=== PATIENT | male | born 1960 | race Caucasian/White ===

== ENCOUNTER 2018-11-14 13:28 | Emergency (ER) | payer OTHER ==
[2018-11-14 15:39] LABS: BASOPHIL % 0.6 % (0-2); PLATELET COUNT 271 x10^3mcL (130-400); RED CELL DISTRIBUTION WIDTH 13.6 % (11.5-14.5)
[2018-11-14 15:43] LABS: CALCIUM 8.8 mg/dL (8.5-10.1); CARBON DIOXIDE 28.4 mmol/L (21-32); CREATININE SERUM 1.5 mg/dL (0.7-1.3); POTASSIUM SERUM 4.6 mmol/L (3.5-5.1)
[2018-11-14 15:48] LABS: ALBUMIN 3.8 g/dL (3.4-5.0); BILIRUBIN TOTAL 0.6 mg/dL (0.20-1.00); TOTAL PROTEIN, SERUM 7.4 g/dL (6.4-8.2)
[2018-11-14 19:18] VITALS: BP 139/72
== END 2018-11-14 19:18 | disposition home or self-care (01) ==
LOC: ED 13:28
PROVIDERS: Emergency Medicine
DX: K80.20 Calculus of gallbladder without cholecystitis without obstruction (principal); K57.90 Diverticulosis of intestine, part unspecified, without perforation or abscess without bleeding; I10 Essential (primary) hypertension; Z85.6 Personal history of leukemia
CPT/HCPCS: 36415; Q0092

== ENCOUNTER 2020-03-05 17:27 | Inpatient (IN) | payer OTHER ==
[~2020-03-05] VITALS: Ht 182.9 cm; Wt 108.1 kg
[~2020-03-05 17:27] MED LIST: FENOFIBRATE MI130 MG; HYDRALAZINE HCL25 MG PO; LASIX40 MG PO; LEVAQUIN750 MG PO; LEVO-T150 MCG; LOPRESSOR50 M1 PO; SPRYCEL100 MG PO
--- NOTE | 2020-03-05 17:35 | NUR ---
Pt bib adult son from home for sob/coughs since 02-23-20.was here 02-23-20,pna.awaits er md/pa-c evaluations/assessments.markel cervantes.monitors on.
--- NOTE | 2020-03-05 17:40 | NUR ---
kayla ronquillo at [facility] for evaluations/assessments.markel cervantes.monitors on.awaits reevaluations.
--- NOTE | 2020-03-05 17:50 | NUR ---
pt spouse showed up up at triage wait area and gave me permission to put her/branden contact number of [phone] in the chart.pt made aware.and spouse/weife took pt's wallet.
--- NOTE | 2020-03-05 18:05 | NUR ---
iov access started aseptically with blood drawn/sent to lab,flushed with ns.pt tolerated procedures with no incidents.awaits test results,reevaluations.markel cervantes.monitors on.
[2020-03-05 18:25] LABS: BASOPHIL % 0.2 % (0-2); RED CELL DISTRIBUTION WIDTH 14.5 % (11.5-14.5)
[2020-03-05 18:29] LABS: PLATELET COUNT 502 x10^3mcL (130-400)
--- NOTE | 2020-03-05 18:36 | NUR ---
RESTING ER # 15 HOB @ 60 DEGREES SR UP,AAO,NAD.IV MEDS INFUSING WELL VIA IV PUMP.PT TOLERATED PROCEDURES WITH NO INCIDENTS.AWAITS TEST RESULTS,REEVALUATIONS.
[2020-03-05 18:37] LABS: CALCIUM 8.3 mg/dL (8.5-10.1); CARBON DIOXIDE 23.1 mmol/L (21-32); CREATININE SERUM 1.4 mg/dL (0.7-1.3); POTASSIUM SERUM 4.5 mmol/L (3.5-5.1)
[2020-03-05 18:54] LABS: BILIRUBIN TOTAL 0.2 mg/dL (0.20-1.00)
[2020-03-05 18:55] LABS: ALBUMIN 3.2 g/dL (3.4-5.0)
--- NOTE | 2020-03-05 19:00 | NUR ---
COVID-19 SWAB DONE ON PT.SPECIMEN SENT TO LAB.PT TOLERATED PROCEDURES WITH NO INCIDENTS.AWAITS REEVALUATIONS.TOMMIE TRINIDAD.
--- NOTE | 2020-03-05 19:11 | NUR ---
PT ENDORSED to/accepted by julito anderson.
[2020-03-05] MEDS ORDERED: LIPOFEN150 MG PO (19:12)
[2020-03-05] MEDS ORDERED: FLOMAX0.4 MG PO (19:13)
--- NOTE | 2020-03-05 19:36 | NUR ---
REPORT GIVEN TO RONNA KANG TO ASSUME CARE PT.
[2020-03-05 19:54] LABS: UA SPECIFIC GRAVITY >=1.030 (1.005-1.035); microscopic required? YES; urine erythrocyte NEGATIVE (NEGATIVE)
--- NOTE | 2020-03-05 20:00 | NUR ---
RECEIVED PT FROM BULMARO KANG. PT IS AAOX4 AND DENIES VILLAVICENCIO/DIZZINESS AT THIS TIME. PT IS MED-SURG AND DENIES CP/PRESSURE. PT IV PATENT AND INTACT. RESUMED ZITHROMAX IV THAT PT WAS BROUGHT TO UNIT WITH FROM ED. REORIENTED PT TO CALL LIGHT AND SURROUNDINGS. ALL NEEDS MET AT THIS TIME. CALL LIGHT WITHIN REACH. BED IN LOWEST POSITION. SIDE RAILS X2 UP. DROPLET AND CONTACT PRECAUTIONS MAINTAINED. WILL CONTINUE TO MONITOR.
--- NOTE | 2020-03-05 20:00 | NUR ---
RECEIVED PATIENT FROM ER VIA [facility]ER[facility], PATIENT WALKING FROM [place] TO BED. DENIES PAIN OR SOB AT THIS TIME. MED-SURG PATIENT. IV TO LAC INTACT AND INFUSING ZITHROMAX, PATENT. ORIENTED TO CALL LIGHT, NEEDS MET. CARE ENDORSE TO RONNA KANG. INFORM PATIENT OF DROPLET ISOLATION AND ISOLATION BOX AND SIGN POST OUTSIDE THE DOOR.
[2020-03-05 20:08] LABS: C REACTIVE PROTEIN 0.6 mg/dL (<=0.9)
[2020-03-05 20:13] VITALS: BP 159/78
--- NOTE | 2020-03-05 22:15 | NUR ---
ZITHROMAX IV COMPLETED AT THIS TIME AND PT TOLERATED WELL. PER JAN, ADMINISTERED VANCO IVPB. PT WENT TO USE RESTROOM AT THIS TIME AND CAME BACK OUT D/T SOB. EXPIRATORY WHEEZES AND USE OF ACCESSORY MUSCLES NOTED. PUT PT ON 3LPM O2 VIA NC AND SAO2 IS 98%. EDUCATED PT TO TAKE SLOW, DEEP BREATHS. PT BREATHING SLOWED DOWN AND PER PT, HE WAS FEELING BETTER NOW ON THE OXYGEN. WILL MAKE DR. OSWALD AWARE. ALL NEEDS MET AT THIS TIME. WILL CONTINUE TO MONITOR.
--- NOTE | 2020-03-06 00:50 | NUR ---
MARICRUZO IVPB COMPLETED. PT TOLERATED WELL. PER MAR, ADMINISTERED ZOSYN IVPB. NO ACUTE DISTRESS NOTED. PER PT, BREATHING IS BETTER AT THIS TIME. PROVIDED PT WITH SNACKS AND WATER. ALL NEEDS MET AT THIS TIME. CALL LIGHT WITHIN REACH. BED IN LOWEST POSITION. SIDE RAILS X2 UP. WILL CONTINUE TO MONITOR.
[2020-03-06 02:39] VITALS: Ht 182.9 cm; Wt 108.1 kg
--- NOTE | 2020-03-06 05:18 | NUR ---
PT RESTED COMFORTABLY WITH EYES CLOSED IN INTERVALS THROUGHOUT THE NIGHT, BUT EASILY AROUSABLE. PT HAD 1X EPISODE OF SOB, BUT RESOLVED WITH PLACING PT BACK ON 3LPM 02 VIA NC AND CONTINUOUS PULSE OX WITH SA02 OF 98-100%. PT STATED HE FEELS BETTER WITH OXYGEN. ALL NEEDS AND CONCERNS ADDRESSED. DROPLET + CONTACT PRECAUTIONS MAINTAINED DURING THE SHIFT. COMFORT AND SAFETY MEASURES MAINTAINED. WILL CONTINUE TO MONITOR. WILL ENDORSE TO DAY SHIFT NURSE.
[2020-03-06 06:16] VITALS: BP 165/83
[2020-03-06 06:32] LABS: BASOPHIL % 0.7 % (0-2); RED CELL DISTRIBUTION WIDTH 14.5 % (11.5-14.5)
[2020-03-06 06:48] LABS: PLATELET COUNT 453 x10^3mcL (130-400)
[2020-03-06 07:05] LABS: CALCIUM 8.4 mg/dL (8.5-10.1); CREATININE SERUM 1.4 mg/dL (0.7-1.3); PHOSPHOROUS 4.2 mg/dL (2.5-4.9); POTASSIUM SERUM 4.2 mmol/L (3.5-5.1)
[2020-03-06 07:52] LABS: MAGNESIUM 2.3 mg/dL (1.8-2.4)
[2020-03-06 08:00] VITALS: BP 170/80
--- NOTE | 2020-03-06 08:00 | NUR ---
RECEIVED PATIENT ALERT AND ORIENTED TIMES FOUR. WALKED TOT HE RESTROOM AND BECAME SOB. PLACED BACK ON 02 AND NOTED THE PATIENT TOOK A WHILE TO CATCH IS BREATH AGAIN. RECEIVED A CALL THIS AM FROM RADIOLOGY AND THEY SPOKE WITH AND PLACED PROCEDURE FOR ULTRA SOUNDS WAS DEEMED UNNECESSARY DUE TO THE CHEST SXRAY SHOWED THAT THE PATIENT HAD NO FURTHER INCREASE IN THE LUNG FLUIDS. PATIENT STATES HE IS NOW FEELING BETTER STAFF AT [facility]. CALLED THE RESIDENT AND ORDERS PENDING FOR RESPIRATORY THERAPY. PATIENT REMAINS IN ISOLATION FOR THE RULE OUT COVID. PATIENT HAS BEEN AWARE AND IS WEAR A MASK AND CAREFUL TO WASH HANDS INDICATED. PATIENT GIVEN HIS MEDICATIONS AND HE HAS BEEN NOTED TO HAVE BP OF 170/8 AND PATIENT HAS NO TEMPERATURE AND COUGH IS PRODUCTIVE. EDEMA OF ONE PLUS TO THE LOWER XTERMITIES AND PATIETN IS WTIH ORAL MEDICATION INDICATED. PATIENT DENIES ANY PAIN AT THIS TIME. WILL CONTINUE TO MONITOR INDICATED. VITALS ARE AT 170/80, 98.0, 20, 100 MAP, 82, 100% ON 3 LITERS NASAL CANNULA.
--- NOTE | 2020-03-06 08:38 | NUR ---
CANCELLATION REQUESTED FOR ECHOCARDIOGRAM
[2020-03-06 12:00] VITALS: BP 155/81
--- NOTE | 2020-03-06 12:00 | NUR ---
VITALS STABLE AT THIS TIME. DENIES CHEST PAIN AT THIS TIME. VITALS ARE AT 98.1, 20, 155/81, 85, 98 MAP. ENCOURAGE TO REQUEST ASSIST NEEDED. ISOLATION MAINTAINED.
--- NOTE | 2020-03-06 16:55 | NUR ---
PATIENT IS TOLERATING DIET AND VERY COOPERATIVE WITH CARE. PATIENT HAS NO ADVERSE REACTION TO THE VANCO OR ANY OF THE ANTIBIOTICS GIVEN. PATIENT IS NOT ACUTELY SOB AT THIS TIME. CONTINUED ON ISOLATION FOR RULE OUT COVID 19. EXPECTED RETURN OF THE TEST IS MOST LIKELY TOMORROW. LASIX GIVEN EARLIER RETURNED 1100CC OF URINE.
[2020-03-06 18:16] VITALS: BP 145/78
--- NOTE | 2020-03-06 18:18 | NUR ---
PATIENT VITALS STABLE AND DENIES ANY ACUTE RESPIRATORY DISTRESS AT THIS TIME.
--- NOTE | 2020-03-06 19:20 | NUR ---
RECEIVED PT IN BED RESTING QUIETLY. HE IS ALERT,ORIENTED X4. LUNG SOUNDS DIMINISHED. ON O2 AT 3L N/C. PT W/ NO SOB WHILE AT REST BUT STATED HE STILL FEELS SOB WHEN HE AMBULATES OR WHEN HE IS DOING SOMETHING. HE HAS NO C/O PAIN AT THIS TIME. W/ HL TO LTAC. CALL LIGHT W/IN REACH.
[2020-03-06 21:30] VITALS: BP 146/87
--- NOTE | 2020-03-06 22:55 | NUR ---
PT C/O HAVING SOB AND REQUESTING FOR RT TREATMENT. DR. CONSTANTINO INFORMED AND ORDER TO BE GIVEN. RT INFORMED.
--- NOTE | 2020-03-06 22:56 | NUR ---
RESP. THERAPIST HERE TO GIVE PT TREATMENT.
--- NOTE | 2020-03-07 00:08 | NUR ---
PT VERBALIZED HE FEELS BETTER NOW AFTER THE INHALATION TREATMENT.
[2020-03-07 00:40] VITALS: BP 146/87
--- NOTE | 2020-03-07 05:16 | NUR ---
PT SLEPT THROUGH THE NIGHT. HE REMAINS ALERT AND ORIENTED. PT STILL W/ SOB ON EXERTION. HE HAD NO C/O PAIN. ALL NEEDS ATTENDED TO. DROPLET ISOLATION MAINTAINED.
[2020-03-07 06:02] VITALS: BP 139/94
[2020-03-07 07:20] LABS: CALCIUM 8.5 mg/dL (8.5-10.1); CARBON DIOXIDE 27.3 mmol/L (21-32); CREATININE SERUM 1.5 mg/dL (0.7-1.3); PHOSPHOROUS 3.9 mg/dL (2.5-4.9); POTASSIUM SERUM 4.1 mmol/L (3.5-5.1)
[2020-03-07 07:28] LABS: PLATELET COUNT 395 x10^3mcL (130-400)
[2020-03-07 07:35] LABS: RED CELL DISTRIBUTION WIDTH 14.7 % (11.5-14.5)
--- NOTE | 2020-03-07 07:50 | NUR ---
RECEIVED PATIENT RESTING IN BED, NO ACUTE DISTRESS NOTED. PATIENT REPORT MILD SOB, PATIENT STATES SOB INCREASES WHEN WALKING. PATIENT IS ON 3L NC, PULSE OX AT 98-100%. TELE MONITOR IN PLACE. PATIENT VOIDS FREELY IN URINAL, PT ON STRICT I&OS 1500ML/DAY. GENERALIZED WEAKNESS NOTED. IV TO LAC SALINE, CDI&PATENT. CALL LIGHT WITHIN REACH, BED IN LOW POSITION, WILL CONTINUE TO MONITOR.
[2020-03-07 09:00] VITALS: BP 154/78
--- NOTE | 2020-03-07 12:00 | NUR ---
US THORACENTSIS BEING DONE AT BEDSIDE AT THIS TIME.
[2020-03-07 12:35] VITALS: BP 158/86
[2020-03-07] MEDS ORDERED: HYDRALAZINE HCL25 MG PO (12:36)
--- NOTE | 2020-03-07 12:52 | NUR ---
US THORACENTESIS COMPLETED AT THIS TIME.
[2020-03-07 16:14] LABS: APPEARANCE FLUID CLOUDY; COLOR FLUID RED; LYMPHOCYTE FLUID 94 %; RBC FLUID 12906 /cumm; SOURCE FLUID PLEURAL; WBC FLUID 133 /cumm
[2020-03-07 16:15] LABS: MONOCYTE FLUID 5 %
[2020-03-07 17:45] VITALS: BP 141/73
--- NOTE | 2020-03-07 17:45 | NUR ---
PATIENT RECEIVED IV ABXS AT THIS TIME, PATIENT TOLERATING WELL. PATIENT IS UP AND EATING, NO ACUTE DISTRESS NOTED. PATIENT DENIES SOB, ON 3L NC. TELE MONITOR IN PLACE, DENIES PAIN. ALL NEEDS MET AT THIS TIME, WILL CONTINUE TO MONITOR AND ENDORSE REPORT TO NIGHT RN.
--- NOTE | 2020-03-07 19:50 | NUR ---
RECEIVED PT IN BED AWAKE, ALERT,ORIENTED X4. LUNG SOUNDS DIMINISHED AND MORE ON THE LT. PT VERBALIZED HE IS BREATHING BETTER AFTER THE THORACENTESIS. HE STATED THAT WHEN HE ABULATES HE DOES NOT FEEL SOB MUCH BEFORE. HE HAS NO C/O PAIN. W/ IV HL TO RTAC. PT ALSO STATED HE IS STILL HAVING LOOSE BM. CALL LIGHT W/IN REACH.
[2020-03-07 21:15] VITALS: BP 144/69
--- NOTE | 2020-03-07 23:50 | NUR ---
PT STILL AWAKE . NO SOB OR RESP DISTRESS NOTED.
[2020-03-08] VITALS (10 sets, daily range): BP systolic 139–153; BP diastolic 67–77
--- NOTE | 2020-03-08 00:05 | NUR ---
DR. KERN MET WITH PT AND DISCUSSED POC. PT IS TO HAVE THORACENTESIS TODAY AND BE TITRATED OFF 0XYGEN. IF PT IS STABLE HE WILL DISCHARGE TOMORROW. PT AGREED WITH POC.
[2020-03-08 06:13] LABS: BASOPHIL % 0.3 % (0-2); PLATELET COUNT 354 x10^3mcL (130-400)
--- NOTE | 2020-03-08 06:16 | NUR ---
PT SLEPT FAIRLY. HE HAD NO C/O SOB. HE ALSO HAD NO C/O PAIN. PT FOR LT THORACENTESIS TODAY AT 0900. PT HAD SMALL BM AND HE STATED LAST ONE WAS FORMED. ALL NEEDS ATTENDED TO. DROPLET ISOLATION MAINTAINED.
--- NOTE | 2020-03-08 06:29 | NUR ---
PT WAS SEEN BY DR. COKER. O2 WAS REDUCED TO 2L BY DOCTOR.
[2020-03-08 06:32] LABS: CALCIUM 8.8 mg/dL (8.5-10.1); CARBON DIOXIDE 29.3 mmol/L (21-32); CREATININE SERUM 1.4 mg/dL (0.7-1.3); PHOSPHOROUS 3.9 mg/dL (2.5-4.9)
--- NOTE | 2020-03-08 07:30 | NUR ---
PT IS AAOX4. RESP EVEN AND UNLABORED. LUNG SOUNDS DIMINISHED BILATERAL BASE. ON N/C AT 2 LPM. NO COUGH OR SOB. PT S/P R THORACENTESIS. SITE TO R MID BACK WNL. FERRY TERMINAL SUPERVISOR. NO S/S OF INFECTION OR SWELLING. IV CATH N/S LOCKED TO LAC. SITE WNL. TELE [address] READING NSR. PT DENIES PAIN AND DISCOMFORT AT THIS TIME. CALL LIGHT WITHIN REACH. BED IN LOWEST POSITION. WILL CONTINUE TO MONITOR.
--- NOTE | 2020-03-08 09:20 | NUR ---
TYLENOL PO PRN GIVEN FOR C/P 10. SCHEDULED MEDS GIVEN AND TOLERATED WELL. B/P 143/73/ (88), HR 79, O2 SAT 97% ON 2LPM. NO COUGH NOTED. RESP EVEN AND UNLABORED. INFORMED CONSENT OBTAINED FOR THORACENTESIS. PT ASSISSTED WITH ALTAF WIPES BATH. CALL LIGHT WITHIN REACH. BED IN LOWEST POSTION.
--- NOTE | 2020-03-08 10:39 | NUR ---
PT RECEIVING L THORACENTESIS PERFORMED BY DR. Niles LAWTON AT THIS TIME.
--- NOTE | 2020-03-08 11:10 | NUR ---
PT S/P L THORACENTESIS. 1700 ML WITHDRAWN FOR L PLEURAL EFFUSION. SITE COVERED WITH GAUZED AND TAPE WITH MINIMAL DRAINAGE. RESP EVEN AND UNLABORED. LUNG SOUNDS CTA. VS: 98.4, 153/77 (90), 82, 16, 100% ON R/A. NO COUGH OR SOB NOTED. PT DENIES PAIN. WILL CONTINUE TO MONITOR.
--- NOTE | 2020-03-08 14:49 | NUR ---
PT'S O2 SATURATION DROPPED TO 88%. PT NOTED SLEEPING. O2 N/C AT 1 LPM PLACED ON PT FOR SLEEP. WILL REASSESS PT AFTER NAP. SCHEDULED MED GIVEN AND TOLERATED WELL. CALL LIGHT WITHIN REACH.
--- NOTE | 2020-03-08 14:49 | NUR ---
PT'S OX SATURATION DROPPED TO 88%. PT NOTED SLEEPING. O2 N/C AT 1 LPM PLACED ON PT FOR SLEEP. WILL REASSESS PT AFTER NAP. SCHEDULED MED GIVEN AND TOLERATED WELL. CALL LIGHT WITHIN REACH.
--- NOTE | 2020-03-08 16:57 | NUR ---
DR. COKER SPOKE TO DR. MAO AND CLARIFIED IF SECOND COVID/NOVEL SMALLS TEST IS NEEDED. THE FIRST TEST HAD BEEN COMPLETED AND IS NEGATIVE. DR. MAO INFORMED DR. COKER THAT THE PT DOES NOT NEED A SECOND COVID/NOVEL SMALLS TEST. PT MADE AWARE.
--- NOTE | 2020-03-08 17:44 | NUR ---
DR. GALEANA MET PT WITH AND ASSESSED PT. DR. GALEANA GIVEN PT'S FRIEND MARILYN MARTINEZ'S PHONE NUMBER. NO NEW ORDERS AT THIS TIME.
--- NOTE | 2020-03-08 18:00 | NUR ---
IV ZOSYN INITIATED. PT DENIES PAIN. RESP EVEN AND UNLABORED. NO DISTRESS NOTED. L THORACENTESIS SITE CDI. PT TRANSFERRED TO MED SURG STATUS, TELE MONITOR 11 REMOVED AND RETURNED TO FLOORING HELPER. PT TITATED OFF O2 N/C. O2 SAT 97% ON R/A. IV CATH TO LAC, SITE WNL. NO S/S OF INFECTION OR INFILTRATION. PT DENIES PAIN AND DISCOMFORT. L AND R THORACENTESIS SITES CDI. NO S/S OF INFECTION OR DRAINAGE NOTED. CALL LIGHT WITHIN REACH. BED IN LOWEST POSITION. WILL ENDORSE ALL CARE TO NOC RN.
--- NOTE | 2020-03-08 18:50 | NUR ---
REPORTED TO DR. COKER THAT PT HAS UDS ORDER THAT HAS NOT BEEN FOLLOWED THROUGH. DR. COKER STATED, "PLEASE D/C ORDER." ORDER NOTED AND CARRIED OUT.
--- NOTE | 2020-03-08 19:30 | NUR ---
RECEIVED PT AT THIS TIME FROM AM NURSE, PT IS AWAKE A/O X 4 AND ABLE TO MAKE NEEDS KNOWN. SPEECH IS CLEAR, DENIES HEADACH AT THIS TIME. PT IS MED SURG. PULSES PALPABLE, TRACE BLE WITH SCD'S IN PLACE. LUNG SOUNDS DIMINISHED AND ON RA. RIGHT PLEURAL EFFUSION IS OPEN TO AIR, NO DRAINAGE. LEFT PLEURAL EFFUSION HAS GAUZE WITH SMALL AMOUNT OF DRAINAGE. ABD IS SOFT AND NON TENDER, ACTIVE BS X 4 QUADS. DENIES N/V AT THIS TIME. PT IS ON STRICT I&O, WITH 300 ML LEFT UNTIL MIDNIGHT. PT HAS GENERALIZED WEAKNESS AND IS AMBULATORY. IV TO LAC IS PATENT AND IV FLUIDS INFUSING WELL. PT DENIES PAIN AT THIS TIME. SAFETY PRECAUTIONS IN PLACE, CALL BUTTON WITHIN REACH, WILL CONTINUE TO MONITOR.
--- NOTE | 2020-03-09 00:35 | NUR ---
PT IS RESTING IN BED WITH EYES CLOSED, BUT EASILY AROUSABLE. NO SOB NOTED AT THIS TIME. IV ATB INFUSING WELL AT THIS TIME. IV SITE INTACT NO REDNESS OR INFILTRATION NOTED AT THIS TIME. NO ACUTE DISTRESS NOTED AT THIS TIME. CALL LIGHT WITHIN REACH, WILL CONTINUE TO MONITOR.
[2020-03-09 04:47] VITALS: BP 160/78
[2020-03-09 06:28] LABS: BASOPHIL % 0.5 % (0-2); PLATELET COUNT 333 x10^3mcL (130-400)
[2020-03-09 06:36] LABS: RED CELL DISTRIBUTION WIDTH 14.8 % (11.5-14.5)
[2020-03-09 06:57] LABS: CALCIUM 8.6 mg/dL (8.5-10.1); CARBON DIOXIDE 28.2 mmol/L (21-32); CREATININE SERUM 1.4 mg/dL (0.7-1.3); MAGNESIUM 1.9 mg/dL (1.8-2.4); PHOSPHOROUS 3.1 mg/dL (2.5-4.9); POTASSIUM SERUM 3.6 mmol/L (3.5-5.1)
--- NOTE | 2020-03-09 07:02 | NUR ---
PT AWAKE IN BED. NO C/O OF PAIN, NO SOB AT THIS TIME. NO SIGNIFICANT CHANGES OVERNIGHT. CALL BUTTON WITHIN REACH, CONTINUITY OF CARE ENDORSED TO AM NURSE.
[2020-03-09 07:54] VITALS: BP 153/77
[2020-03-09] MEDS ORDERED: AUGMENTIN1 TA1 PO (09:55)
[2020-03-09] MEDS ORDERED: PROBIOTIC1 EACH PO (09:57)
[2020-03-09] MEDS ORDERED: PRE20 PO (10:36)
[2020-03-09 16:32] VITALS: BP 153/77
--- NOTE | 2020-03-09 18:00 | NUR ---
PT DC HOME, IV DC CATHETER INTACT, PT AWARE OF NEW MEDICATION TO TAKE AND CONTINUING OF CURRENT ONES. ALL QUESTIONS ANSWERED. TELE MONITOR TAKEN TO AUTISM TUTOR.
== END 2020-03-09 17:38 | disposition home or self-care (01) | DRG 720 ==
LOC: ED 17:27 → DU 19:19 → MU 19:19 → DU 03-06 17:14 → MU 03-08 18:01
PROVIDERS: Emergency Medicine; Family Medicine; ADMIT Internal Medicine
PROC: 0W993ZZ Drainage of Right Pleural Cavity, Percutaneous Approach (ICD-10-PCS; principal; 2020-03-07)
PROC: 0W9B3ZZ Drainage of Left Pleural Cavity, Percutaneous Approach (ICD-10-PCS; 2020-03-08)
DX: A41.9 Sepsis, unspecified organism (principal); N17.0 Acute kidney failure with tubular necrosis; J96.00 Acute respiratory failure, unspecified whether with hypoxia or hypercapnia; I13.0 Hypertensive heart and chronic kidney disease with heart failure and stage 1 through stage 4 chronic kidney disease, or unspecified chronic kidney disease; J18.9 Pneumonia, unspecified organism; J91.8 Pleural effusion in other conditions classified elsewhere; I50.9 Heart failure, unspecified; D53.9 Nutritional anemia, unspecified; E78.00 Pure hypercholesterolemia, unspecified; E03.9 Hypothyroidism, unspecified; E44.1 Mild protein-calorie malnutrition; N18.9 Chronic kidney disease, unspecified; E87.70 Fluid overload, unspecified; E78.1 Pure hyperglyceridemia; Z85.6 Personal history of leukemia; Z68.32 Body mass index [BMI] 32.0-32.9, adult; Z03.818 Encounter for observation for suspected exposure to other biological agents ruled out
CPT/HCPCS: 32555; 83880; 87046; 87046-59; 87804; C1729; G0378; J0456; J0696; J1940; J2001; J2543; J3370; J3490; J7030; J7050; J7060; J7512; Q0092; U0002

== ENCOUNTER 2020-03-11 08:45 | Emergency (ER) | payer OTHER ==
[~2020-03-11] VITALS: Ht 182.9 cm; Wt 106.6 kg
[~2020-03-11 08:45] MED LIST changes: +AUGMENTIN1 TA1 PO; +FLOMAX0.4 MG PO; +LIPOFEN150 MG PO; +PRE20 PO; +PROBIOTIC1 EACH PO
[2020-03-11 08:53] VITALS: Ht 182.9 cm; Wt 106.6 kg
[2020-03-11 10:11] LABS: UA SPECIFIC GRAVITY >=1.030 (1.005-1.035); microscopic required? YES; urine erythrocyte NEGATIVE (NEGATIVE)
[2020-03-11 12:36] VITALS: BP 130/71
== END 2020-03-11 12:36 | disposition home or self-care (01) ==
LOC: ED 08:45
PROVIDERS: Specialist
DX: I11.0 Hypertensive heart disease with heart failure (principal); I50.9 Heart failure, unspecified; Z87.19 Personal history of other diseases of the digestive system; Z02.89 Encounter for other administrative examinations